=== PATIENT | male | born 1990 | race African-American/Black ===

== ENCOUNTER 2018-09-24 10:52 | Day surgery (SDC) | payer OTHER, SELFPAY ==
--- NOTE | 2018-09-24 | PATH_ITS ---
[facility] Accession Number: [id number] . 01 Material submitted: . PART A: small bowel - SMALL BOWEL BIOPSIES PART B: gastrointestinal site - GASTRIC BODY ANTRUM BIOPSIES . 01 Clinical history: . A: RULE OUT CELIAC DISEASE B: RULE OUT H.PYLORI . 02 Diagnosis: A. Small Bowel, Biopsies: Duodenal mucosa with no diagnostic abnormality. Negative for active inflammation, features of sprue, dysplasia or malignancy. . B. Stomach, Body Antrum Biopsies: Helicobacter pylori gastritis confirmed by immunohistochemistry. Negative for intestinal metaplasia. Negative for dysplasia and malignancy. [facility]/09/26/2018 . 02 Electronically signed: . Tiana Coyle MD, Pathologist NPI- [id number] . 01 Gross description: . Part A: SMALL BOWEL BIOPSIES: Received in formalin are multiple fragment(s) of lilly, soft tissue measuring 0.1 x 0.1 x 0.1 cm to 0.4 x 0.2 x 0.2 cm which is entirely submitted and submitted entirely in 1 cassette(s) Part B: GASTRIC BODY ANTRUM BIOPSIES: Received in formalin are 4 fragment(s) of lilly, soft tissue measuring 0.1 x 0.1 x 0.1 cm to 0.3 x 0.3 x 0.2 cm which is entirely submitted and submitted entirely in 1 cassette(s) /[facility] /[facility] . 02 Microscopic: . B. An immunohistochemical stain was performed to evaluate for Helicobacter organisms and is positive. A HEAB stain was performed to evaluate for intestinal metaplasia and is negative. The control stains both showed appropriate reactivity. . * This test was developed and its performance characteristics determined by [facility]. It has not been cleared or approved by the U.S. Food and Drug Administration. The FDA has determined that such clearance or approval is not necessary. This test is used for clinical purposes. It should not be regarded as investigational or for research. . 02 Pathologist provided ICD-10: B96.81, R10.9 . 02 CPT . 860391, 268787, 517422, Q79165 Performed at: 01 [facility] [address] [place] [address], [place], [place] [id number] MD Oz Espana MD Phone: [phone] Performed at: [address] [id number] MD Tiana Coyle MD Phone: [phone]
--- NOTE | 2018-09-24 08:52 | P.HP_ITS ---
History of Present Illness Date Patient Seen: 09/24/18 Chief complaint: [id number] Narrative: 28-year-old male who was seen at our office on 08/28/2018 for changes in bowel habits and a positive tTG IgG. Please refer to that office note for further details. There have been no changes in his physical exam or symptoms since that office visit Patient History Medical History (Updated 09/24/18 @ 11:15 by Modesto Almanza) GERD (gastroesophageal reflux disease) (Acute) Hepatitis (Acute) Joint pain (Acute) Social History household members: spouse Meds Home Medications Medication Instructions Recorded Confirmed Type prazosin 10 mg PO QPM 09/24/18 09/24/18 History rizatriptan 10 mg PO Q2-4H PRN 09/24/18 09/24/18 History Allergies Allergy/AdvReac Type Severity Reaction Status Date / Time No Known Drug Allergies Allergy Verified 09/24/18 11:14 Review of Systems Review of Systems All systems reviewed & are unremarkable except as noted in HPI and below Exam Narrative Exam Narrative: General: Patient is well developed, not in apparent distress Cardiovascular: Regular rate and rhythm, no murmurs, rubs, or gallops; no evid ence of edema; no palpable abdominal aortic aneurysm Gastrointestinal: Normoactive bowel sounds, soft, nontender, nondistended, no rebound tenderness, no hepatosplenomegaly, no evidence of hernia Assessment & Plan Assessment & Plan narrative: 28-year-old male who is here for upper endoscopy with gastric and small-bowel biopsies to rule out H pylori and celiac disease respectively. Regarding the procedure(s), the risks and potential complications, benefits, and alternatives (including not doing the procedure) were discussed with the patient. The risks include but are not limited to bleeding, splenic injury, infection, perforation which may require surgical intervention, missed lesions, and adverse reactions to sedative medicines. After a question and answer period, the patient agreed to proceed with the procedure(s) and gives informed consent.
[2018-09-24 11:18] VITALS: BMI 25.7
[2018-09-24 11:22] VITALS: BP 115/77; PULSE 69; RESP 24; TEMP 36.9; O2SAT 98
[2018-09-24] MEDS: SODIUM CHLORIDE 0.9% 1,000 ML 70 ML IV (11:28)
--- NOTE | 2018-09-24 12:22 | PM.OP.ENDO ---
Operative Date/Time/Diagnoses Date of procedure: 09/24/18 Procedure Notes Procedure in detail: Surgeon: Wing Jimenez MD Procedure: Esophagogastroduodenoscopy with biopsy Preoperative diagnosis: Positive celiac serology Postoperative diagnosis: Mild gastric erythema otherwise normal EGD Medications: Conscious sedation using 5 mg IV of Midazolam and 100 mcg IV of Fentanyl Preanesthesia Assessment An H and P was performed/updated and the Px?s ASA class is 2. The procedure was discussed in detail with the patient. The potential risks and complications including infection, bleeding, missed lesions, perforation, need for surgery in case of perforation, prolonged hospital stay, and were explained. A brief question and answer period was allotted and once all questions were answered, informed consent was obtained. The patient was brought back to the procedure room and placed on standard monitoring. The patient?s vital signs were monitored continuously throughout the entire procedure. Prior to starting, a timeout was performed to confirm the patient?s identity, allergies, medications, and procedure. Procedure in detail The patient was placed in left lateral decubitus position and a bite block was inserted. The tip of the upper endoscope was placed into the mouth and advanced without difficulty under direct visualization into the esophagus. Esophagus: The entire esophagus appeared normal Stomach: There was mild erythema diffusely throughout the entire stomach. Biopsies were taken to rule out H pylori Duodenum: The visualized duodenal mucosa to the 2nd portion of the duodenum appeared normal. Biopsies were taken to rule out celiac disease. The patient tolerated the procedure well and will be brought back to the recovery area to be discharged once criteria are met. The total physician intraservice time was 11 minutes. Complications There were no complications and estimated blood loss was minimal. Recommendations: Resume previous diet Continue outPx medications Follow up pathology results Office follow up with Dr. Solis at next available appointment. Patient needs to call our office at [phone] An emergency contact number was given to the patient for any complications related to the procedure
[2018-09-24] MEDS: TETRACAINE/BENZOCAINE/BUTAMBEN (CETACAINE) BOTTLE 1 SPRAY TOP (12:24)
[2018-09-24] MEDS: fentaNYL 250 MCG/5 ML INJ IV (12:24)
[2018-09-24] MEDS: MIDAZOLAM 5 MG/5 ML VIAL IV (12:26)
[2018-09-24 12:38] VITALS: BP 112/79; PULSE 77; RESP 14; TEMP 36.2; O2SAT 98
[2018-09-24 12:42] VITALS: BP 110/74; PULSE 74; RESP 16; O2SAT 98
[2018-09-24 12:48] VITALS: BP 117/82; PULSE 93; RESP 15; O2SAT 99
[2018-09-24 12:53] VITALS: BP 127/85; PULSE 89; RESP 12; O2SAT 99
[2018-09-24 13:16] VITALS: BP 120/77; PULSE 80; RESP 16; TEMP 36.7; O2SAT 99
== END 2018-09-24 13:35 | disposition home or self-care (01) ==
PROVIDERS: PCP Internal Medicine Gastroenterology; Visit Provider Internal Medicine Gastroenterology
PROC: 0DJ08ZZ Inspection of Upper Intestinal Tract, Via Natural or Artificial Opening Endoscopic (ICD-10-PCS; CPT 43235; principal; 2018-09-24 12:30)
DX: R19.4 Change in bowel habit (principal); R76.8 Other specified abnormal immunological findings in serum; B96.81 Helicobacter pylori [H. pylori] as the cause of diseases classified elsewhere; K21.9 Gastro-esophageal reflux disease without esophagitis
CPT/HCPCS: 43239; 88305; 88313; 88342; J2250; J3010